=== PATIENT | female | born 1955 | race Caucasian/White ===

== ENCOUNTER → 2017-10-11 10:11 | Outpatient (CLI) | payer BC, SELFPAY ==
[2017-10-11 11:18] LABS: ALB/GLOB Ratio 1.1 RATIO (0.9-2.4); AST(SGOT) 17 U/L (15-37); Alanine Aminotransfer ALT/SGPT 25 U/L (13-56); Alkaline Phosphatase 72 U/L (45-117); Anion Gap 5 (5-15); BUN 15 mg/dL (7-18); BUN/Creat Ratio 18.8 RATIO (10-20); Chloride 106 mmol/L (98-107); Cholesterol 201 mg/dL (200); EST Glomerular Filtration Rate 78 mL/min (>60); Est Glom Filt Rate - Afr Amer 94 mL/min (>60); Globulin 3.7 g/dL (2.2-4.2); Glucose 88 mg/dL (74-106); High Density Lipoprotein 48 mg/dL; Potassium 4.2 mmol/L (3.5-5.1); Protein, Total 7.7 g/dL (6.4-8.2); Sodium Level 141 mmol/L (136-145); Triglycerides 101 mg/dL; Very Low Density Lipoprotein 20 mg/dL (5-40)
== END ==
PROVIDERS: Visit Provider Family Medicine
DX: E78.5 Hyperlipidemia, unspecified (principal)
CPT/HCPCS: 36415; 80053; 80061

== ENCOUNTER → 2018-12-24 10:50 | Outpatient (CLI) | payer BC, SELFPAY ==
--- NOTE | 2018-12-24 10:53 | BI_ITS ---
MAMMOGRAPHY - BILATERAL SCREENING REASON FOR EXAM: Female, 63 years old. Routine annual screening examination. PERTINENT HISTORY: Non-contributory. TECHNIQUE: Digital bilateral breast arya (3D mammographic acquisition) in the CC and MLO projections. 2-D mediolateral oblique (MLO) and craniocaudad (CC) views of both breasts were obtained. CAD: Full Field Digital Mammography with Computer Added Detection was performed. COMPARISON: Comparison is made with prior occipital examination of April 03, 2017. FINDINGS: Breast Composition: There are scattered areas of fibroglandular density. There are no dominant masses or suspicious calcifications. No other significant abnormalities are identified. There has been no significant change since the prior study. BI/SCREEN MAMM (CAD) W/ARYA BILAT IMPRESSION: Stable bilateral screening mammogram. Yearly follow-up mammogram recommended. (A) ASSESSMENT CATEGORY: BIRADS Category 1: Negative. A letter regarding these results will be sent to the patient by the facility within 30 days. Approximately 10% of breast cancers are not detected by mammography. A normal mammogram should not delay biopsy of a clinically suspicious abnormality. [id number] Electronically Signed: Robert Duenas, at 9:04 EST , Service support ,
== END ==
PROVIDERS: Family Provider Family Medicine; PCP Family Medicine; Referring Provider Family Medicine; Visit Provider Family Medicine
DX: Z12.31 Encounter for screening mammogram for malignant neoplasm of breast (principal)
CPT/HCPCS: 77063; 77067

== ENCOUNTER → 2021-12-11 | Outpatient (CLI) | payer BC, SELFPAY ==
--- NOTE | 2021-12-11 16:44 | BI_ITS ---
MAMMOGRAPHY - BILATERAL SCREENING REASON FOR EXAM: Female, 66 years old. Routine annual screening examination. PERTINENT HISTORY: Non-contributory. TECHNIQUE: Digital bilateral breast arya (3D mammographic acquisition) in the CC and MLO projections. 2-D mediolateral oblique (MLO) and craniocaudad (CC) views of both breasts were obtained. CAD: Full Field Digital Mammography with Computer Added Detection was performed. COMPARISON: Comparison is made with prior study dated 12/24/2018. FINDINGS: Breast Composition: There are scattered areas of fibroglandular density. There are no dominant masses or suspicious calcifications. Stable small benign-appearing bilateral axillary lymph nodes. No other significant abnormalities are identified. There has been no significant change since the prior study. BI/SCRN MAMM (CAD)W/ARYA BILAT IMPRESSION: Stable bilateral screening mammogram. Yearly follow-up mammogram recommended. (A) ASSESSMENT CATEGORY: BIRADS Category 2: Benign. A letter regarding these results will be sent to the patient by the facility within 30 days. Approximately 10% of breast cancers are not detected by mammography. A normal mammogram should not delay biopsy of a clinically suspicious abnormality. [id number] Electronically Signed: Robert Duenas MD at 8:26 EDT ,
== END | disposition home or self-care (01) ==
LOC: OPBI 12-12 08:42
PROVIDERS: PCP Family Medicine; Referring Provider Registered Nurse; Visit Provider Registered Nurse
DX: Z12.31 Encounter for screening mammogram for malignant neoplasm of breast (principal)
CPT/HCPCS: 77063; 77067

== ENCOUNTER → 2023-03-21 | Outpatient (CLI) | payer OTHER, SELFPAY ==
--- NOTE | 2023-03-20 16:13 | BI_ITS ---
MAMMOGRAPHY - BILATERAL SCREENING REASON FOR EXAM: Female, 67 years old. Routine annual screening examination. PERTINENT HISTORY: Non-contributory. TECHNIQUE: Digital bilateral breast arya (3D mammographic acquisition) in the CC and MLO projections. 2-D mediolateral oblique (MLO) and craniocaudad (CC) views of both breasts were obtained. CAD: Full Field Digital Mammography with Computer Added Detection was performed. COMPARISON: Comparison is made with prior study dated December 11, 2021 and December 24, 2018. FINDINGS: Breast Composition: The breasts are almost entirely fatty. There are no dominant masses or suspicious calcifications. No other significant abnormalities are identified. There has been no significant change since the prior study. BI/SCRN MAMM (CAD)W/ARYA BILAT IMPRESSION: Stable bilateral screening mammogram. Yearly follow-up mammogram recommended. (A) ASSESSMENT CATEGORY: BIRADS Category 1: Negative. A letter regarding these results will be sent to the patient by the facility within 30 days. Approximately 10% of breast cancers are not detected by mammography. A normal mammogram should not delay biopsy of a clinically suspicious abnormality. [id number] Electronically Signed: Robert Duenas MD at 8:23 EST ,
--- OUTSIDE RECORDS SUMMARY | 2023-03-21 07:21 | XMS RPT_ITS | CCD ---
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 Name Role Phone ELIZABETH TIJERINA Unavailable Unavailable ELIZABETH TIJERINA Unavailable Unavailable ELIZABETH TIJERINA Unavailable Unavailable ELIZABETH TIJERINA Unavailable Unavailable ELIZABETH TIJERINA Unavailable Unavailable GIGI ARMENDARIZ, MARY Gallardo Primary Care Physician [phone] BOSSMAN CARSON Primary Care Physi dk BOSSMAN CARSON Attending Un available BOSSMAN CARSON Primary Care Un available Medications Current Medications Medication Drug Class(es) Dates Sig (Normalized) Sig (Original) albuterol 0.83 mg/ml inhalation solution (7 sources) beta2-Adrenergic Agonist Start: 02-15-2022 take 1 dose by inhalation every four hours as needed albuterol 2.5 mg/3 mL (0.083%) inhalation solution Dose : 2.5 mg = 3 mL, Inhalation, q4h, PRN for wheezing, # 60 EA, 0 Refill(s), Pharmacy: [id number], Productive cough, 157.5, cm, 02/15/22 12:56:00 EST, Height Start Date: 02/15/22 Status: Ordered Completed/Discontinued Medications Medication Drug Class(es) Dates Sig (Normalized) Sig (Original) esomeprazole 40 mg delayed release oral capsule (4 sources) Proton Pump Inhibitor Start: 05-31-2022 End: 11-27-2022 NexIUM 40 mg oral delayed release capsule Dose : 40 mg = 1 cap(s), Oral, qPM, # 90 cap(s), 1 Refill(s), Pharmacy: [facility], Overactive bladder, 157.5, cm, 05/31/22 17:11:00 EDT, Height Start Date: 05/31/22 Stop Date: 11/27/22 Status: Ordered Problems Active Problems Problem Classification Problem Date Documented Da te Episodic/Chronic Asthma (1 source) Asthma 03-18-2022 Chronic Disorders of lipid metabolism (4 sources) Hyperlipidemia 11-04-2018 Chronic Genitourinary symptoms and ill-defined conditions (3 sources) Urinary incontinence 06-14-2021 Chronic Other diseases of bladder and urethra (1 source) Overactive bladder 03-19-2022 Chronic Other non-traumatic joint disorders (4 sources) Knee pain 07-27-2012 Episodic Residual codes; unclassified (4 sources) Requires vaccination 12-02-2019 Episodic Residual codes; unclassified (3 sources) Insomnia 11-23-2021 Episodic Unclassified (1 source) Sebaceous cyst of skin 09-13-2022 Past or Other Problems Problem Classification Problem Date Documented Da te Episodic/Chronic Gastrointestinal hemorrhage (1 source) Melena; Translations: [Melena] Onset: 04-18-2017 Episodic Residual codes; unclassified (4 sources) Pain Onset: 08-17-2012 08-11-2015 Episodic Results Test Name Value Interpretation Reference Range Facil ity Encounters Encounter Date Encounter Type Care Provider Facility Start: 02-22-2023 End: 02-23-2023 ambulatory BOSSMAN JAMISON APRN-[facility] Facility:B Start: 02-22-2023 End: 02-22-2023 Patient encounter procedure BOSSMAN JAMISON APRN-CANE WEIGHER HELPER [facility] Start: 12-17-2021 End: 12-17-2021 Patient encounter procedure BOSSMAN JAMISON APRN-[employer]HER HELPER [facility] Start: 11-24-2021 End: 11-24-2021 Patient encounter procedure BOSSMAN JAMISON APRN-[employer] WEIGHER HELPER [facility] Start: 06-04-2021 End: 06-04-2021 Patient encounter procedure MARY YU MD [facility] Start: 05-01-2017 End: 05-05-2017 Ambulatory ELIZABETH TIJERINA [facility] Start: 04-18-2017 End: 04-18-2017 Ambulatory ELIZABETH TIJERINA [facility] Start: 03-24-2017 End: 03-24-2017 Ambulatory ELIZABETH SPAINTMAN [facility] Procedures Date Procedure Procedure Detail Performing Clinician Start: 02-18-2012 History of left oophorectomy MARY YU MD Start: 02-18-2012 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 12-14-2020 influenza, injectabl e, quadrivalent, contains preservative; Translations: [Fluarix PF Quadrivalent ] MARY YU MD [facility] 06-01-2020 SARS-CoV-2 (COVID-19 ) mRNA-1273 vaccine MARY YU MD [facility] Payers Date Payer Category Payer Private Health Insurance [id number] 1955 Unknown [id number] Social History Date Type Detail Facility Start: 10-15-2018 Tobacco smoking status Never s moked tobacco (finding) [facility] Evaluation + Plan note 11-23-2021 LaboratoryRadiology Note Date & Type Note Facility 11-23-2021 Evaluation + Plan note Future Scheduled TestsComplete Blood Count 05/24/22Lipid Profile 05/24/22Complete Metabolic Panel 05/24/22MA Mammo Screening Bilateral w/ Jacobo 11/23/21 [facility] Evaluation + Plan note Note Date & Type Note Facility Evaluation + Plan note Future Appointments Appointment Date:06/14/2021 04:30:00 PM Scheduled Provider:MARY YU MD Location:[facility] Appointment Type:PC OV [facility] Evaluation + Plan note Laboratory Note Date & Type Note Facility Evaluation + Plan note Future Appointments Appointment Date:05/31/2022 05:00:00 PM Scheduled Provider:BOSSMAN JAMISON Location:[facility] Appointment Type:PC OV Future Scheduled TestsComplete Blood Count 05/24/22Lipid Profile 05/24/22Complete Metabolic Panel 05/24/22 [facility] Evaluation + Plan note Laboratory Note Date & Type Note Facility Evaluation + Plan note Future Appointments Appointment Date:02/24/2023 05:00:00 PM Scheduled Provider:BOSSMAN JAMISON Location:[facility] Appointment Type:PC OV Future Scheduled TestsComplete Blood Count 05/24/22Lipid Profile 05/24/22Complete Metabolic Panel 05/24/22 [facility] Hospital course Narrative Note Date & Type Note Facility Hospital course Narrative No data available for this section [facility] Hospital Discharge instructions Note Date & Type Note Facility Hospital Discharge instructions No data available for this section [facility] Progress note Note Date & Type Note Facility Progress note No data available for this section [facility] Summary Purpose Family History No Family History Records Found No data available for this section No Family History Records Found Advance Directives No Advanced Directives Records FoundNo Advanced Directives Records Found Additional Source Comments INFORMATION SOURCE (unrecogn ized section and content) DATE CREATED AUTHOR AUTHOR'S ORGANIZ ATION 03/01/2023 [facility] ([place]) Care Team (unrecognized sect ion and content) Personnel Name: MARY YU MD Address: [address] Care Team Personnel Name: BOSSMAN JAMISON Position: P4 Advanced Sheet Metal Fabricator Member Role: Primary Care Physician Address: Address: [facility] [address] Care Team Related Persons Name: KATELYN SHANNON Name: RUFINA SHANNON Care Team (unrecognized sect ion and content) Care Team Personnel Name: MARY YU MD Position: P4 Physician - Primary Care Med Service: Active Provider Member Role: Primary Care Physician Address: Address: [address] Care Team Related Persons Name: KATELYN SHANNON Name: RUFINA SHANNON Care Team Personnel Name: BOSSMAN JAMISON Position: P4 Advanced Practice Nurse Member Role: Primary Care Physician Address: Address: [facility] [address] Care Team Related Persons Name: KATELYN SHANNON Name: TIGNOR, RUFINA FOR RECORDS PERTAINING TO PATIENTS WHO ARE OR HAVE BEEN ENROLLED IN A CHEMICAL DEPENDENCY/SUBSTANCEABUSE PROGRAM, SOME INFORMATION MAY BE OMITTED. This clinical summary was aggregated from multiple sources. Caution should be exercised in using it in the provision of clinical care. This summary normalizes information from multiple sources, and as a consequence, information in this document may materially change the coding, format and clinical context of patient data. In addition, data may be omitted in some cases. CLINICAL DECISIONS SHOULD BE BASED ON THE PRIMARY CLINICAL RECORDS. [facility]. provides no warranty or guarantee of the accuracy or completeness of information in this document.
== END | disposition home or self-care (01) ==
LOC: OPBI 07:16
PROVIDERS: PCP Family Medicine; Referring Provider Registered Nurse; Visit Provider Registered Nurse
DX: Z12.31 Encounter for screening mammogram for malignant neoplasm of breast (principal)
CPT/HCPCS: 77063; 77067

== ENCOUNTER → 2024-11-16 | Outpatient (CLI) | payer OTHER, SELFPAY ==
--- NOTE | 2024-11-16 16:53 | BI_ITS ---
EXAM: SCRN MAMM (CAD)W/ARYA BILAT DATE: 11/16/2024 CLINICAL HISTORY: F, Age 69 y/o , SCREENING Routine screening TECHNIQUE: Procedure Code: BISMWCADBTOM Modality: MG Procedure: SCRN MAMM (CAD)W/ARYA BILAT COMPARISON: Prior exam(s) dated 03/20/2023. FINDINGS: TISSUE DENSITY: There are scattered areas of fibroglandular density. Bilateral Breast Mammographic Findings: No significant masses, calcifications or other abnormalities are identified. No interval change BI/SCRN MAMM (CAD)W/ARYA BILAT IMPRESSION: Stable screening mammogram, no suspicious findings OVERALL FINAL ASSESSMENT BI-RADS 1: NEGATIVE. RECOMMENDATION: Routine annual follow-up in 1 Year Additional Recommendation none A letter with findings and recommendations will be mailed to the patient. Reading Location: [id number]
--- NOTE | 2024-11-16 16:53 | BI_ITS ---
EXAM: SCRN MAMM (CAD)W/ARYA BILAT DATE: 11/16/2024 CLINICAL HISTORY: F, Age 69 y/o , SCREENING Routine screening TECHNIQUE: Procedure Code: BISMWCADBTOM Modality: MG Procedure: SCRN MAMM (CAD)W/ARYA BILAT COMPARISON: Prior exam(s) dated 03/20/2023. FINDINGS: TISSUE DENSITY: There are scattered areas of fibroglandular density. Bilateral Breast Mammographic Findings: No significant masses, calcifications or other abnormalities are identified. No interval change BI/SCRN MAMM (CAD)W/ARYA BILAT IMPRESSION: Stable screening mammogram, no suspicious findings OVERALL FINAL ASSESSMENT BI-RADS 1: NEGATIVE. RECOMMENDATION: Routine annual follow-up in 1 Year Additional Recommendation none A letter with findings and recommendations will be mailed to the patient. Reading Location: [id number]
== END | disposition home or self-care (01) ==
LOC: OPBI 11-17 07:23
PROVIDERS: PCP Registered Nurse; Referring Provider Registered Nurse; Visit Provider Registered Nurse
DX: Z12.31 Encounter for screening mammogram for malignant neoplasm of breast (principal)
CPT/HCPCS: 77063; 77067